=== PATIENT | female | born 2000 | race Caucasian/White ===

== ENCOUNTER 2023-07-10 17:46 | Emergency (ER) | payer BC ==
[~2023-07-10] VITALS: Ht 175.3 cm; Wt 81.6 kg
[2023-07-10] MEDS ORDERED: ZONISAMIDE100 MG (18:56)
[2023-07-10 19:23] LABS: BASOPHILS 0.6 % (0-2); HEMATOCRIT 40.8 % (35.0-50.0); HEMOGLOBIN 13.1 g/dL (12.0-18.0); LYMPHOCYTES 17.9 % (24-44); MCH 28.5 (27-36); MCHC 32.3 g/dl (30-36); MCV 88.5 fl (81-99); MONOCYTES 7.1 % (0-12); NEUTROPHILS 73.4 % (39-80); PLATELET COUNT 322 K/uL (140-440); RBC 4.61 M/ul (4.3-5.7); RDW 15.1 (10.5-15.0)
[2023-07-10 19:39] LABS: ALBUMIN 3.9 g/dL (3.4-5.0); ALBUMIN/GLOBULIN RATIO 1.22 (1.1-2.4); ANION GAP 11.6 (7-21); BILIRUBIN, TOTAL 0.4 ng/dL (0.2-1.0); BUN/CREATININE RATIO 8.98 (6.0-28.6); CALCIUM 8.6 mg/dL (8.5-10.1); CREATININE, SERUM 0.89 mg/dL (0.55-1.02); POTASSIUM 3.6 mmol/L (3.5-5.1); PROTEIN, TOTAL 7.1 g/dL (6.4-8.2)
[2023-07-10] MEDS ORDERED: KEPPRA500 MG PO (20:35)
[2023-07-10 20:51] VITALS: BP 109/53
== END 2023-07-10 20:43 | disposition home or self-care (01) ==
LOC: ED 17:46
PROVIDERS: Family Medicine
DX: G40.909 Epilepsy, unspecified, not intractable, without status epilepticus (principal)
CPT/HCPCS: 36415; 80053; 84703; 85025; 96374; 99284-25; J1953

== ENCOUNTER 2023-08-15 17:07 | Emergency (ER) | payer OTHER ==
[~2023-08-15] VITALS: Ht 175.3 cm; Wt 81.6 kg
[~2023-08-15 17:07] MED LIST: KEPPRA500 MG PO; ZONISAMIDE100 MG
[2023-08-15] MEDS ORDERED: ZONEGRAN100 MG PO (18:40)
[2023-08-15 18:50] VITALS: BP 108/66
== END 2023-08-15 18:50 | disposition home or self-care (01) ==
LOC: ED 17:07
DX: G40.909 Epilepsy, unspecified, not intractable, without status epilepticus (principal); Z79.899 Other long term (current) drug therapy; Z87.820 Personal history of traumatic brain injury
CPT/HCPCS: 99284

== ENCOUNTER 2023-08-29 20:15 | Emergency (ER) | payer OTHER ==
[~2023-08-29] VITALS: Ht 175.3 cm; Wt 80.5 kg
[~2023-08-29 20:15] MED LIST changes: +ZONEGRAN100 MG PO
--- OUTSIDE RECORDS SUMMARY | 2023-08-29 20:23 | XMS ---
PreManage Notification: ELROY ALVAREZ [place] Nurse Events No recent Security Events currently on file CRITERIA MET - [facility] - 2 Visits in 30 Days CARE PROVIDERS There are no care providers on record at this time. Mckenzie has no Care Guidelines for this patient. [facility] (12 MO.) [facility] NOTE: Visits indicate total known visits. ED[facility] VISIT TRACKING (12 MO.) [facility] COMPLAINT: - HEAD INJURY 08/15/2023 17:08 [facility] TYPE: Emergency COMPLAINT: - SEIZURE DIAGNOSES: - Epilepsy, unspecified, not intractable, without status epilepticus - Other moth exterminator (current) drug therapy - Personal history of traumatic brain injury - Unspecified convulsions 07/10/2023 17:47 [facility] TYPE: Emergency COMPLAINT: - SEIZURE DIAGNOSES: - Epilepsy, unspecified, not intractable, without status epilepticus - Unspecified convulsions INPATIENT VISIT TRACKING (12 MO.) No inpatient visits to display in this time frame [email or web address]
[2023-08-29 21:07] LABS: BILIRUBIN, URINE NEGATIVE (negative); BLOOD/HGB, URINE TRACE-I (Negative); KETONE, URINE NEGATIVE (Negative); LEUK ESTERASE, URINE NEGATIVE (negative); NITRITE, URINE NEGATIVE (negative)
[2023-08-29 21:12] LABS: EPITHELIAL CELLS, URINE SQUAMOUS 2+ /lpf (0-1+)
[2023-08-29 21:13] LABS: BACTERIA, URINE RARE /hpf (negative); CASTS, URINE NONE SEEN \\lpf; CRYSTALS, URINE NONE SEEN (0-1+)
[2023-08-29 21:14] LABS: REFLEX CULTURE, URINE No (No)
[2023-08-29 21:21] LABS: AMPHETAMINES, URINE NEGATIVE (NEGATIVE); BARBITURATES, URINE NEGATIVE (NEGATIVE); BENZODIAZEPINE, URINE NEGATIVE (NEGATIVE); BUPRENORPHINE, URINE NEGATIVE (NEGATIVE); CANNABINOID, URINE POSITIVE (NEGATIVE); COCAINE, URINE NEGATIVE (NEGATIVE); ECSTASY, URINE NEGATIVE (NEGATIVE); FENTANYL, URINE NEGATIVE (NEGATIVE); METHADONE, URINE NEGATIVE (NEGATIVE); OPIATES, URINE NEGATIVE (NEGATIVE); OXYCODONE, URINE NEGATIVE (NEGATIVE); PHENCYCLIDINE, URINE NEGATIVE (NEGATIVE)
[2023-08-29 21:23] LABS: BASOPHILS 0.2 % (0-2); EOSINOPHILS 0.6 % (0-6); HEMATOCRIT 40.6 % (35.0-50.0); HEMOGLOBIN 13.3 g/dL (12.0-18.0); LYMPHOCYTES 9.8 % (24-44); MCH 29.2 (27-36); MCHC 32.6 g/dl (30-36); MCV 89.5 fl (81-99); MONOCYTES 5.5 % (0-12); NEUTROPHILS 83.9 % (39-80); PLATELET COUNT 332 K/uL (140-440); RBC 4.54 M/ul (4.3-5.7); RDW 14.3 (10.5-15.0)
[2023-08-29 21:36] LABS: ALBUMIN 3.6 g/dL (3.4-5.0); ALBUMIN/GLOBULIN RATIO 0.97 (1.1-2.4); ALCOHOL, MEDICAL <3 ng/dL (<3); ALKALINE PHOSPHATASE 101 U/L (46-116); ALT (SGPT) 13 U/L (14-59); ANION GAP 11.9 (7-21); AST (SGOT) 15 U/L (15-37); BILIRUBIN, TOTAL 0.3 ng/dL (0.2-1.0); BUN/CREATININE RATIO 16.43 (6.0-28.6); CALCIUM 8.9 mg/dL (8.5-10.1); CARBON DIOXIDE 29 mmol/L (21-32); CHLORIDE 102 mmol/L (98-107); CREATININE, SERUM 0.73 mg/dL (0.55-1.02); GLOMERULAR FILTRATION RATE,EST 117 mL/min (>60); MAGNESIUM 2.1 mg/dL (1.8-2.4); POTASSIUM 3.9 mmol/L (3.5-5.1); PROTEIN, TOTAL 7.3 g/dL (6.4-8.2); UREA NITROGEN 12 mg/dL (7-18)
[2023-08-29] MEDS ORDERED: DIPHTH,PERTUSS(ACELL),TET VAC 0.5 ML SYRINGE IM ONE (22:15)
[2023-08-29 23:05] VITALS: BP 101/61
== END 2023-08-29 23:05 | disposition home or self-care (01) ==
LOC: ED 20:15
PROVIDERS: Internal Medicine
DX: G40.909 Epilepsy, unspecified, not intractable, without status epilepticus (principal); S00.12XA Contusion of left eyelid and periocular area, initial encounter; S00.83XA Contusion of other part of head, initial encounter; X58.XXXA Exposure to other specified factors, initial encounter; M25.512 Pain in left shoulder; Z79.899 Other long term (current) drug therapy; Z23 Encounter for immunization
CPT/HCPCS: 36415; 70450; 70486; 71045; 72125; 73030; 80053; 80307; 81001; 83735; 84703; 85025; 90471; 90715; 99284-25; G0480

== ENCOUNTER 2024-01-07 10:11 | Emergency (ER) | payer OTHER ==
[~2024-01-07] VITALS: Ht 175.3 cm; Wt 87.4 kg
[~2024-01-07 10:11] MED LIST changes: +VIMPAT100 MG PO
[2024-01-07 10:32] LABS: BASOPHILS 0.4 % (0-2); EOSINOPHILS 2.2 % (0-6); HEMATOCRIT 38.6 % (35.0-50.0); HEMOGLOBIN 12.7 g/dL (12.0-18.0); LYMPHOCYTES 25.4 % (24-44); MCH 29.4 (27-36); MCV 89.2 fl (81-99); MONOCYTES 6.2 % (0-12); NEUTROPHILS 65.8 % (39-80); PLATELET COUNT 290 K/uL (140-440); RBC 4.32 M/ul (4.3-5.7); RDW 14.2 (10.5-15.0)
[2024-01-07 10:35] VITALS: BP 00/00
[2024-01-07] MEDS ORDERED: ACETAMINOPHEN 500 MG TAB PO ONE (10:45)
[2024-01-07 10:53] LABS: ALBUMIN 3.7 g/dL (3.4-5.0); ALBUMIN/GLOBULIN RATIO 1.12 (1.1-2.4); ALCOHOL, MEDICAL 9 ng/dL (<3); ALKALINE PHOSPHATASE 87 U/L (46-116); ALT (SGPT) 21 U/L (14-59); ANION GAP 16.2 (7-21); AST (SGOT) 15 U/L (15-37); BILIRUBIN, TOTAL 0.2 ng/dL (0.2-1.0); BUN/CREATININE RATIO 13.51 (6.0-28.6); CALCIUM 8.4 mg/dL (8.5-10.1); CARBON DIOXIDE 22 mmol/L (21-32); CHLORIDE 106 mmol/L (98-107); CREATININE, SERUM 0.74 mg/dL (0.55-1.02); GLOMERULAR FILTRATION RATE,EST 115 mL/min (>60); POTASSIUM 4.2 mmol/L (3.5-5.1); UREA NITROGEN 10 mg/dL (7-18)
[2024-01-07] MEDS ORDERED: LIDOCAINE/RACEPINEP/TETRACAINE 3 ML SYR TOP ONE (12:00)
== END 2024-01-07 13:03 | disposition home or self-care (01) ==
LOC: ED 10:11
PROVIDERS: Emergency Medicine
DX: G40.909 Epilepsy, unspecified, not intractable, without status epilepticus (principal); S01.01XA Laceration without foreign body of scalp, initial encounter; W18.30XA Fall on same level, unspecified, initial encounter; Z79.899 Other long term (current) drug therapy; Z91.148 Patient's other noncompliance with medication regimen for other reason
CPT/HCPCS: 36415; 70450; 72125; 80053; 84702; 85025; A9270; G0480

== ENCOUNTER 2024-11-07 18:10 | Emergency (ER) | payer OTHER ==
[~2024-11-07] VITALS: Ht 175.3 cm; Wt 71.3 kg
[2024-11-07] MEDS ORDERED: KETOROLAC TROMETHAMINE 60 MG/2 ML VIAL IM ONE (20:00)
[2024-11-07] MEDS ORDERED: CYCLOBENZAPRINE10 MG PO (21:26)
[2024-11-07] MEDS ORDERED: CYCLOBENZAPRINE HCL 10 MG HOME.PACK PO ONE (21:30)
[2024-11-07 22:22] VITALS: BP 111/78
== END 2024-11-07 22:22 | disposition home or self-care (01) ==
LOC: ED 18:10
DX: S46.912A Strain of unspecified muscle, fascia and tendon at shoulder and upper arm level, left arm, initial encounter (principal); S80.211A Abrasion, right knee, initial encounter; Y09 Assault by unspecified means
CPT/HCPCS: 36415; 70450; 72100; 73060; 73560; 84703; 96372; 99284-25; J1885